=== PATIENT | female | born 1980 | race African-American/Black ===

== ENCOUNTER 2016-11-24 08:37 | Emergency (ER) | payer MEDICAID ==
[2016-11-24 08:43] VITALS: BP 139/82; BMI 24.0
--- NOTE | 2016-11-24 10:07 | DR.GENAD ---
HPI - PCP Primary Care Physician: [place] - HPI Comment HPI Comment: NO LOC. PAIN SEVERE OVER ELBOW AREA. - Complaint/Symptoms Chief Complaint Doctors Comments: FELL ON STEPS THIS AM, PAIN LEFT ARM AND FOREARM. Chief Complaint:: PATIENT STATED SHE FELL DOWN 4 STEPS COMING OUT HER HOME THIS MORNING - Nurses notes reviewed Nurses Notes Review: Yes - Source History Provided: Patient - Mode of Arrival Mode of Arrival: Ambulatory - Timing Onset of Chief Complaint: 11/24/16 Came on: Suddenly - Duration Duration: Constant Duration: Days - Severity Severity: Moderate PMH - PMH Past Medical History: No Past Surgical History: No - Family History History of Family Medical Conditions: Yes Family Medical History: Diabetes Mellitus, Cancer, Hypertension - Social History Does patient currently use any type of tobacco product: Yes Have you used tobacco products in the last 12 months: Yes Type of Tobacco Use: Cigars How many years tobacco product used: 1 Does any household member use tobacco: No Alcohol Use: None Do you use any recreational Drugs:: No Lives With: Family Lives Where: Home - infectious screening In the last 2 months have you had wt loss of >10#?: NO Have you had fever, night sweats or hemotysis?: No Have you traveled outside the country in the last 6 months?: No Isolation: Standard ROS - Review of Systems Constitutional: No Symptoms Reported Eyes: No Symptoms Reported ENTM: No Symptoms Reported Respiratoy: No Symptoms Reported Cardiovascular: No Symptoms Reported Gastrointestinal/Abdominal: No Symptoms Reported Genitourinary: No Symptoms Reported Neurological: No Symptoms Reported Musculoskeletal: Left, Arm, Forearm Integumentary: No Symptoms Reported Hematologic/Lymphatic: No Symptoms Reported Endocrine: No Symptoms Reported All Other Systems: Reviewed and Negative PE - Vital Signs Vitals: Temperature 97.8 F Pulse Rate 68 Respiratory Rate 16 Blood Pressure 139/82 O2 Sat by Pulse Oximetry 100 - General Limitations: No Limitations General Appearance: Alert - Head Head Exam: Normal Inspection - Eyes Eye exam: Normal Appearance - ENT ENT Exam: Normal External Ear Exam External Ear Exam: Normal External Inspection TM/Canal Exam: Bilateral Normal Nose Exam: Normal Nose Exam Mouth Exam: Normal Inspection Throat Exam: Normal Inspection - Neck Neck Exam: Trachea Midline - Chest Chest Inspection: Symmetric Chest Wall Rise - Respiratory Respiratory Exam: Normal Lung Sounds Bilat Respiratory Exam: Bilateral Clear to Auscultation - Cardiovascular Cardiovascular Exam: Regular Rate, Normal Rhythm, Normal Heart Sounds - Abdominal Exam Abdominal Exam: Normal Inspection - Extremities Extremities Exam: Tenderness (TENDERNESS OVER LEFT UPPER EXTREMITY.). negative : Full ROM (DECREASE ROM SHOULDER.) - Back Back Exam: Normal Inspection - Neurologic Neurological Exam: Alert, Oriented X3 - Psychiatric Psychiatric Exam: Anxious - Skin Skin Exam: Normal Color MDM - Differential Diagnosis Differential Diagnosis: CONTUSION, SPRAIN, FRACTURE LRFT UPPER EXT. Course - Treatment Treatment: SEE ORDERS. - Education/Counseling Education/Counseling: Patient, Education Educated On: Diagnosis, Needs for Follow Up ROR - XRAY XRAY Interpreted by: Radiologist XRAY Findings: REPORT DISCUSS WITH PATIENT. - Diagnosis Discharge Problem: Sprain Contusion Qualifiers: Encounter type: initial encounter Contusion area: upper arm Laterality: left Qualified Code(s): S40.022A - Contusion of left upper arm, initial encounter Left elbow contusion Qualifiers: Encounter type: initial encounter Qualified Code(s): S50.02XA - Contusion of left elbow, initial encounter Strain of left forearm Qualifiers: Encounter type: initial encounter Qualified Code(s): S56.912A - Strain of unspecified muscles, fascia and tendons at forearm level, left arm, initial encounter Strain of left upper arm Qualifiers: Encounter type: initial encounter Qualified Code(s): S46.912A - Strain of unspecified muscle, fascia and tendon at shoulder and upper arm level, left arm , initial encounter - Discharge Plan Disposition: 01 HOME, SELF-CARE Condition: Stable Prescriptions: Acetaminophen with Codeine [Tylenol/Codeine #3 300-30 mg] 1 tab PO Q4-6H PRN # 15 tab PRN Reason: Pain Cyclobenzaprine HCl [FLEXERIL 10 MG *] 10 mg PO TID PRN #20 tab PRN Reason: - Follow ups/Referrals Follow ups/Referrals: NFD,None [Primary Care Provider] - 3 days - Instructions Instructions: Musculoskeletal Pain Additional Instructions: RETURN TO ED IF WORSE.
--- NOTE | 2016-11-24 10:54 | RAD ---
HISTORY: Fall with arm pain Study: 3 views of the left humerus. Comparison: None Findings: No acute cortical disruption or dislocation can be identified. The humeral head appears unremarkable . No significant soft tissue swelling or injury can be seen. IMPRESSION: 1. No acute abnormality of the left humerus. Reported By:
--- NOTE | 2016-11-24 10:54 | RAD ---
HISTORY: Fall with left arm pain Study: 2 views of the left forearm. Comparison: None Findings: No acute cortical disruption or dislocation can be identified. The radius and ulna are unremarkable. No significant soft tissue swelling or injury can be seen. IMPRESSION: 1. No acute abnormality of the left forearm. Reported By:
== END 2016-11-24 11:12 | disposition home or self-care (01) ==
LOC: ER 08:48
DX: S40.022A Contusion of left upper arm, initial encounter (principal); S50.02XA Contusion of left elbow, initial encounter; S56.912A Strain of unspecified muscles, fascia and tendons at forearm level, left arm, initial encounter; S46.912A Strain of unspecified muscle, fascia and tendon at shoulder and upper arm level, left arm, initial encounter; W10.9XXA Fall (on) (from) unspecified stairs and steps, initial encounter; Y92.9 Unspecified place or not applicable
CPT/HCPCS: 73060; 73090; 99282; 99283

== ENCOUNTER 2017-03-28 20:02 | Emergency (ER) | payer MEDICAID, OTHER ==
[2017-03-28 20:19] VITALS: BMI 24.7
[2017-03-28] MEDS ORDERED: TORADOL 60 MG VIAL ONE (20:23)
[2017-03-28] MEDS ORDERED: TORADOL 60 MG VIAL IM ONE (20:32)
--- NOTE | 2017-03-28 20:45 | DR.GENAD ---
HPI - PCP Primary Care Physician: NFD - Complaint/Symptoms Chief Complaint:: cough, extreme headache, bones hurting, running nose, cold chills Self Treatment fo Chief Complaint: Took Tylenol PM and had RX of antibiotic at home and took today. - Nurses notes reviewed Nurses Notes Review: Yes - Source History Provided: Patient - Mode of Arrival Mode of Arrival: Ambulatory - Timing Onset of Chief Complaint: 04/27/17 Came on: Suddenly - Duration Duration: Constant Duration: Hours - Severity Severity: Moderate PMH - PMH Past Medical History: No Past Surgical History: No - Family History History of Family Medical Conditions: No Family Medical History: Diabetes Mellitus, Cancer, Hypertension - Social History Does patient currently use any type of tobacco product: No Have you used tobacco products in the last 12 months: No Type of Tobacco Use: None Does any household member use tobacco: No Alcohol Use: None Do you use any recreational Drugs:: No Lives With: Family Lives Where: Home - infectious screening In the last 2 months have you had wt loss of >10#?: NO Have you had fever, night sweats or hemotysis?: No Have you traveled outside the country in the last 6 months?: No Isolation: Standard ROS - Review of Systems Constitutional: Fever Eyes: No Symptoms Reported ENTM: No Symptoms Reported Respiratoy: No Symptoms Reported Cardiovascular: No Symptoms Reported Gastrointestinal/Abdominal: No Symptoms Reported Genitourinary: No Symptoms Reported Neurological: No Symptoms Reported Musculoskeletal: No Symptoms Reported Integumentary: No Symptoms Reported Hematologic/Lymphatic: No Symptoms Reported Endocrine: No Symptoms Reported All Other Systems: Reviewed and Negative PE - Vital Signs Vitals: Temperature 102.8 F Pulse Rate 111 Respiratory Rate 20 Blood Pressure 116/58 O2 Sat by Pulse Oximetry 97 - General Limitations: No Limitations General Appearance: Alert - Head Head Exam: Normal Inspection - Eyes Eye exam: Normal Appearance - ENT ENT Exam: Normal External Ear Exam External Ear Exam: Normal External Inspection TM/Canal Exam: Bilateral Normal Nose Exam: Normal Nose Exam Mouth Exam: Normal Inspection Throat Exam: Tonsillar Erythema - Neck Neck Exam: Normal Inspection - Chest Chest Inspection: Symmetric Chest Wall Rise - Respiratory Respiratory Exam: Bilateral Rhonchi, Lower Rhonchi - Cardiovascular Cardiovascular Exam: Regular Rate, Normal Rhythm, Normal Heart Sounds - Abdominal Exam Abdominal Exam: Normal Bowel Sounds, Soft, Tenderness - Extremities Extremities Exam: Normal Inspection - Back Back Exam: Normal Inspection - Neurologic Neurological Exam: Alert, Oriented X3 - Psychiatric Psychiatric Exam: Normal Affect, Normal Mood - Skin Skin Exam: Normal Color - Discharge Plan Condition: Stable Prescriptions: Amoxicillin [Amoxil 875 mg] 875 mg PO Q12H #20 tab Ibuprofen [MOTRIN TAB 600 MG *] 600 mg PO TID PRN #20 tab PRN Reason: Pain/Inflammation Oseltamivir Phosphate [Tamiflu] 75 mg PO BID #10 cap - Follow ups/Referrals Follow ups/Referrals: NFD,None [Primary Care Provider] - 3 days - Instructions Instructions: Influenza, Adult, [id number], Acute Bronchitis, [id number] Additional Instructions: RETURN TO ED IF WORSE.
[2017-03-28] MEDS ORDERED: TYLENOL 500 MG TAB EXTRA STRENGTH PO ONE ×2 (21:59→22:00)
[2017-03-28] MEDS ORDERED: AMOXIL CAP 500 MG PO ONE ×2 (22:04→22:05)
[2017-03-28 22:49] VITALS: BP 120/60
== END 2017-03-28 22:45 | disposition home or self-care (01) ==
LOC: ER 20:37
DX: J11.1 Influenza due to unidentified influenza virus with other respiratory manifestations (principal); J20.9 Acute bronchitis, unspecified
CPT/HCPCS: 96372; 99282; J1885

== ENCOUNTER 2017-08-08 08:34 | Emergency (ER) | payer OTHER ==
[2017-08-08 08:44] VITALS: BP 121/76
[2017-08-08] MEDS ORDERED: NS 1000 ML 1,000 ML IV ONE (09:06)
[2017-08-08] MEDS ORDERED: PEPCID 20 MG IV PREMIX* 20 MG/50 ML BAG IV ONE ×2 (09:06→09:11)
[2017-08-08] MEDS ORDERED: ZOFRAN INJ 4 MG VIAL IVP ONE (09:06)
[2017-08-08] MEDS ORDERED: NS 1000 ML 1,000 ML ONE (09:11)
[2017-08-08] MEDS ORDERED: ZOFRAN INJ 4 MG VIAL ONE (09:11)
--- NOTE | 2017-08-08 09:17 | DR.GENAD ---
HPI - PCP Primary Care Physician: nfd - HPI Comment HPI Comment: NO FEVER. WORSE TODAY. NO DYSURIA. - Complaint/Symptoms Chief Complaint Doctors Comments: ABDOMINAL PAIN, N/V/D TIMES 4 DAYS. Chief Complaint:: 4 days ago pt started having c/o generalized abdominal pain. Pt states she had an episode of heavy menstral bleeding yesterday and she nearly passed out. Bleeding has stopped today. pt's also c/o nausea, vomiting and diarrhea. Pt also c/o new onset of urinary incontinence and tightness in her chest when she takes a breath in. Self Treatment fo Chief Complaint: took tylenol #3 with no relief - Nurses notes reviewed Nurses Notes Review: Yes - Source History Provided: Patient - Mode of Arrival Mode of Arrival: Ambulatory - Timing Onset of Chief Complaint: 08/05/17 Came on: Suddenly - Duration Duration: Constant Duration: Days PMH - PMH Past Medical History: No Past Surgical History: Yes Past Surgical History Comment: tubal ligation - Family History History of Family Medical Conditions: Yes Family Medical History: Diabetes Mellitus, Coronary Artery Disease, Hypertension - Social History Does patient currently use any type of tobacco product: Yes Have you used tobacco products in the last 12 months: No Type of Tobacco Use: None Does any household member use tobacco: No Alcohol Use: None Do you use any recreational Drugs:: Yes (marijuana) Lives With: Significant Other Lives Where: Home - infectious screening In the last 2 months have you had wt loss of >10#?: NO Have you had fever, night sweats or hemotysis?: No Have you traveled outside the country in the last 6 months?: No Isolation: Standard ROS - Review of Systems Constitutional: No Symptoms Reported. negative: Chills, Fever Eyes: No Symptoms Reported. negative: Eye Pain, Discharge ENTM: No Symptoms Reported. negative: Ear Discharge, Nose Congestion Respiratoy: No Symptoms Reported. negative: Productive Cough, Short of Breath, Wheezing, Hemoptysis Cardiovascular: No Symptoms Reported Gastrointestinal/Abdominal: Abdominal Pain, Diarrhea, Nausea, Vomiting Genitourinary: No Symptoms Reported. negative: Dysuria, Frequency, Hematuria Neurological: No Symptoms Reported Musculoskeletal: No Symptoms Reported Integumentary: No Symptoms Reported Hematologic/Lymphatic: No Symptoms Reported Endocrine: No Symptoms Reported All Other Systems: Reviewed and Negative PE - Vital Signs Vitals: Temperature 97.0 F Pulse Rate 78 Respiratory Rate 20 Blood Pressure [Left Arm] 120/60 Blood Pressure 121/76 O2 Sat by Pulse Oximetry 100 - General Limitations: No Limitations General Appearance: In No Apparent Distress - Head Head Exam: Normal Inspection - Eyes Eye exam: Normal Appearance - ENT ENT Exam: Normal External Ear Exam External Ear Exam: Normal External Inspection TM/Canal Exam: Bilateral Normal Nose Exam: Normal Nose Exam Mouth Exam: Normal Inspection Throat Exam: Normal Inspection - Neck Neck Exam: Normal Inspection - Chest Chest Inspection: Symmetric Chest Wall Rise - Respiratory Respiratory Exam: Normal Lung Sounds Bilat Respiratory Exam: Bilateral Clear to Auscultation - Cardiovascular Cardiovascular Exam: Regular Rate, Normal Rhythm, Normal Heart Sounds - Abdominal Exam Abdominal Exam: Normal Bowel Sounds, Soft, Tenderness Abdominal Tenderness: Diffuse, Moderate - Extremities Extremities Exam: Normal Inspection - Back Back Exam: Normal Inspection - Neurologic Neurological Exam: Alert, Oriented X3 - Psychiatric Psychiatric Exam: Normal Affect, Normal Mood - Skin Skin Exam: Normal Color MDM - Differential Diagnosis Differential Diagnosis: ABDOMINAL PAIN, BOWEL OBSTRUCTION, UTI, PUD, DIVERTICULITIS Course - Treatment Treatment: SEE ORDERS. - Education/Counseling Education/Counseling: Patient, Education Educated On: Diagnosis, Needs for Follow Up ROR - Labs Reviewed Laboratory Results Reviewed?: Yes Result Diagrams: 08/08/17 09:40 08/08/17 09:40 Laboratory: WBC 5.4 X10^3/uL (3.6-10.0) 08/08/17 09:40 RBC 3.72 X10^6/uL (3.5-5.4) 08/08/17 09:40 Hgb 11.1 g/dL (12.0-16.0) L 08/08/17 09:40 Hct 33.4 % (36.0-47.0) L 08/08/17 09:40 MCV 89.6 fL (80.0-100.0) 08/08/17 09:40 MCH 29.9 pg (27.0-34.0) 08/08/17 09:40 MCHC 33.4 g/dL (33.0-35.0) 08/08/17 09:40 RDW 12.0 % (11.6-16.5) 08/08/17 09:40 Plt Count 134 X10^3/uL (150.0-450.0) L 08/08/17 09:40 MPV 9.4 fL (7.4-11.0) 08/08/17 09:40 Neut % (Auto) 55.4 % (42.0-75.0) 08/08/17 09:40 Lymph % (Auto) 31.2 % (21.0-51.0) 08/08/17 09:40 Swain % (Auto) 10.1 % (0.0-13.0) 08/08/17 09:40 Eos % (Auto) 2.2 % (0.9-2.9) 08/08/17 09:40 Baso % (Auto) 1.1 % (0.2-1.0) H 08/08/17 09:40 Neut # (Auto) 3.0 x10^3/uL (2.2-4.8) 08/08/17 09:40 Lymph # (Auto) 1.7 X10^3/uL (1.3-2.9) 08/08/17 09:40 Swain # (Auto) 0.5 x10^3/uL (0.3-0.8) 08/08/17 09:40 Eos # (Auto) 0.1 x10^3/uL (0.0-0.2) 08/08/17 09:40 Baso # (Auto) 0.1 X10^3/uL (0.0-0.1) 08/08/17 09:40 Absolute Nucleated RBC 0.2 /100WBC 08/08/17 09:40 Sodium 142 mmol/L (136-145) 08/08/17 09:40 Corrected Sodium TNP 08/08/17 09:40 Potassium 3.5 mmol/L (3.5-5.1) 08/08/17 09:40 Chloride 106 mmol/L (98-107) 08/08/17 09:40 Carbon Dioxide 27.3 mmol/L (21-32) 08/08/17 09:40 BUN 14 mg/dL (7-18) 08/08/17 09:40 Creatinine 1.04 mg/dL (0.55-1.02) H 08/08/17 09:40 Est GFR (MDRD) Af Amer > 60 (>60) 08/08/17 09:40 Est GFR (MDRD) Non-Af > 60 (>60) 08/08/17 09:40 Glucose 102 mg/dL (65-99) H 08/08/17 09:40 Calcium 8.0 mg/dL (8.5-10.1) L 08/08/17 09:40 Corrected Calcium TNP 08/08/17 09:40 Total Bilirubin 0.30 mg/dL (0.2-1.0) 08/08/17 09:40 AST 26 Units/L (15-37) 08/08/17 09:40 ALT 36 Units/L (12-78) 08/08/17 09:40 Alkaline Phosphatase 61 Units/L (46-116) 08/08/17 09:40 Total Protein 7.4 g/dL (6.4-8.2) 08/08/17 09:40 Albumin 3.8 g/dL (3.4-5.0) 08/08/17 09:40 Globulin 3.6 g/dL (2.5-4.5) 08/08/17 09:40 Albumin/Globulin Ratio 1.1 Ratio (1.1-2.1) 08/08/17 09:40 Amylase 104 Units/L (25-115) 08/08/17 09:40 Lipase 159 Units/L (73-393) 08/08/17 09:40 Specimen Type Clean catch urine 08/08/17 10:04 Urine Color Yellow (YELLOW) 08/08/17 10:04 Urine Appearance Clear (CLEAR) 08/08/17 10:04 Urine pH 6.0 (5.0 - 8.0) 08/08/17 10:04 Ur Specific [place] 1.015 (1.000-1.030) 08/08/17 10:04 Urine Protein Negative (NEGATIVE) 08/08/17 10:04 Urine Glucose (UA) Negative (NEGATIVE) 08/08/17 10:04 Urine Ketones Negative (NEGATIVE) 08/08/17 10:04 Urine Occult Blood Negative (NEGATIVE) 08/08/17 10:04 Urine Nitrite Negative (NEGATIVE) 08/08/17 10:04 Urine Bilirubin Negative (NEGATIVE) 08/08/17 10:04 Urine Urobilinogen Normal (NORMAL) 08/08/17 10:04 Ur Leukocyte Esterase Negative (NEGATIVE) 08/08/17 10:04 H. pylori IgG Antibody Negative (NEGATIVE) 08/08/17 09:40 - XRAY XRAY Interpreted by: Radiologist XRAY Findings: REPORT DISCUSS WITH PATIENT. - Diagnosis Discharge Problem: Gastroenteritis Abdominal pain Qualifiers: Abdominal location: generalized Qualified Code(s): R10.84 - Generalized abdominal pain - Discharge Plan Disposition: 01 HOME, SELF-CARE Condition: Stable Prescriptions: Dicyclomine HCl [Bentyl Cap 10 mg] 10 mg PO TID PRN #15 cap PRN Reason: Diphenoxylate/Atropine [Lomotil] 1 tab PO TID PRN #15 tab PRN Reason: Ondansetron [Zofran ODT 8 mg] 8 mg PO Q8H PRN #12 tab PRN Reason: Nausea/Vomiting - Follow ups/Referrals Follow ups/Referrals: NFD,None [Primary Care Provider] - 2 days GARY MAECDO [STAFF PHYSICIAN] - 2 days - Instructions Instructions: Viral Gastroenteritis, Adult, [id number], Abdominal Pain, Adult , [id number] Additional Instructions: RETURN TO ED IF WORSE.
[2017-08-08 09:49] LABS: BASOPHILS # (AUTO) 0.1 X10^3/uL (0.0-0.1); BASOPHILS % (AUTO) 1.1 % (0.2-1.0); EOSINOPHILS # (AUTO) 0.1 x10^3/uL (0.0-0.2); EOSINOPHILS % (AUTO) 2.2 % (0.9-2.9); HEMATOCRIT 33.4 % (36.0-47.0); HEMOGLOBIN 11.1 g/dL (12.0-16.0); LYMPHOCYTES # (AUTO) 1.7 X10^3/uL (1.3-2.9); LYMPHOCYTES % (AUTO) 31.2 % (21.0-51.0); MEAN CORPUSCULAR HEMOGLOBIN 29.9 pg (27.0-34.0); MEAN CORPUSCULAR HGB CONC 33.4 g/dL (33.0-35.0); MEAN CORPUSCULAR VOLUME 89.6 fL (80.0-100.0); MEAN PLATELET VOLUME 9.4 fL (7.4-11.0); MONOCYTES # (AUTO) 0.5 x10^3/uL (0.3-0.8); MONOCYTES % (AUTO) 10.1 % (0.0-13.0); NEUTROPHILS % (AUTO) 55.4 % (42.0-75.0); PLATELET COUNT 134 X10^3/uL (150.0-450.0); RED BLOOD COUNT 3.72 X10^6/uL (3.5-5.4); WHITE BLOOD COUNT 5.4 X10^3/uL (3.6-10.0)
[2017-08-08 09:58] LABS: ALANINE AMINOTRANSFERASE 36 Units/L (12-78); ALBUMIN 3.8 g/dL (3.4-5.0); ALKALINE PHOSPHATASE 61 Units/L (46-116); AMYLASE 104 Units/L (25-115); ASPARTATE AMINO TRANSFERASE 26 Units/L (15-37); BLOOD UREA NITROGEN 14 mg/dL (7-18); CARBON DIOXIDE 27.3 mmol/L (21-32); CHLORIDE 106 mmol/L (98-107); CREATININE 1.04 mg/dL (0.55-1.02); LIPASE 159 Units/L (73-393); SODIUM 142 mmol/L (136-145); TOTAL PROTEIN 7.4 g/dL (6.4-8.2); eGFR BLACK RACES > 60 (>60); eGFR NON BLACK RACES > 60 (>60)
[2017-08-08 10:20] LABS: BILIRUBIN,URINE NEGATIVE (NEGATIVE); BLOOD/HEMOGLOBIN,URINE NEGATIVE (NEGATIVE); GLUCOSE, URINE NEGATIVE (NEGATIVE); KETONES,URINE NEGATIVE (NEGATIVE); LEUKOCYTE ESTERASE ,URINE NEGATIVE (NEGATIVE); NITRITES,URINE NEGATIVE (NEGATIVE); PROTEIN,URINE NEGATIVE (NEGATIVE); UROBILINOGEN,URINE NORMAL (NORMAL)
[2017-08-08 10:23] LABS: APPEARANCE,URINE CLEAR (CLEAR); COLOR,URINE YELLOW (YELLOW)
--- NOTE | 2017-08-08 11:11 | RAD ---
Study: HISTORY: Lower abdominal and epigastric pain Study: Acute abdominal series Comparison: None Findings: The trachea is midline. The cardiac silhouette is unremarkable. The lungs are clear without focal i nfiltrate or effusion. The bony thorax is unremarkable. Flat plate and upright evaluation of the abdomen demonstrates a normal bowel gas pattern. No patholo gical soft tissue mass or calcification can be observed. The bony structures are grossly intact. IMPRESSION: 1. No acute cardiopulmonary disease. 2. No evidence for acute abdominal pathology identified. Reported By:
== END 2017-08-08 11:30 | disposition home or self-care (01) ==
LOC: ER 08:46
DX: K52.89 Other specified noninfective gastroenteritis and colitis (principal); R10.84 Generalized abdominal pain; R73.9 Hyperglycemia, unspecified
CPT/HCPCS: 36415; 74022; 80053; 81003; 82150; 83690; 85025; 86677; 96365; 96374; 96375; 99282; 99283; A4222; S0028; J2405